=== PATIENT | female | born 2005 | race Caucasian/White ===

== ENCOUNTER 2025-01-14 15:28 | Emergency (ER) | payer MEDICAID ==
[~2025-01-14] VITALS: Ht 152.4 cm; Wt 50.0 kg
[2025-01-14 15:39] VITALS: O2SAT 100
[2025-01-14] MEDS ORDERED: ACET-3800 MT (15:57)
[2025-01-14] MEDS: IBUPROFEN 600MG TABLET PO ONE (16:11)
[2025-01-14 16:50] VITALS: BP 110/71; PULSE 70; RESP 16; TEMP 36.7; O2SAT 100
== END 2025-01-14 16:52 | disposition home or self-care (01) ==
LOC: ER 15:28
DX: M54.9 Dorsalgia, unspecified (principal)
CPT/HCPCS: 99283